=== PATIENT | male | born 1940 | race Caucasian/White ===

== ENCOUNTER 2017-07-20 05:38 | Inpatient (IN) | payer OTHER ==
[~2017-07-20] VITALS: Ht 177.8 cm; Wt 83.1 kg
[2017-07-20 06:18] VITALS: BP 134/80
[2017-07-20] MEDS ORDERED: LACTATED RINGERS 1,000 ML IV SCH (06:34)
[2017-07-20] MEDS ORDERED: [UNRECOGNIZED DRUG - CODE] PO (06:39)
[2017-07-20] MEDS ORDERED: PRAV10TA2 PO (06:39)
[2017-07-20] MEDS ORDERED: GABA600T2 PO (06:39)
[2017-07-20] MEDS ORDERED: ATEN25TA PO (06:39)
[2017-07-20] MEDS ORDERED: CYAN100028 PO (06:39)
[2017-07-20] MEDS ORDERED: OXYC1TAB7 PO (06:39)
[2017-07-20] MEDS ORDERED: ASPI-515 PO (06:39)
[2017-07-20] MEDS ORDERED: OMEP-110 PO (06:39)
[2017-07-20] MEDS ORDERED: EPINEPHRINE 1 MG/ML, 1ML ONE (06:49)
[2017-07-20] MEDS ORDERED: THROMBIN 5,000 UNIT VIAL TP ONE (06:49)
[2017-07-20] MEDS ORDERED: INDIGO CARMINE 0.8%, 5ML ONE (06:49)
[2017-07-20] MEDS ORDERED: BUPIVACAINE/PF 0.5% ONE (06:49)
[2017-07-20] MEDS ORDERED: BACITRACIN 50,000 UNIT ONE (06:50)
[2017-07-20] MEDS ORDERED: MIDAZOLAM 1 MG/ML, 2ML ONE (06:59)
[2017-07-20] MEDS ORDERED: PROPOFOL 100 ML ONE (06:59)
[2017-07-20] MEDS ORDERED: FENTANYL PF 250 MCG/5ML ONE (07:00)
[2017-07-20] MEDS ORDERED: ROCURONIUM 10MG/ML,5ML ONE (07:00)
[2017-07-20] MEDS ORDERED: LIDOCAINE-MPF 1%, 2ML INFIL ONE (07:00)
[2017-07-20] MEDS ORDERED: DEXAMETHASONE 4 MG/ML, 1ML ONE ×4 (07:40→09:55)
[2017-07-20] MEDS ORDERED: CEFAZOLIN 1,000 MG ONE (07:42)
[2017-07-20] MEDS ORDERED: ONDANSETRON 2MG/ML, 2ML ONE (09:02)
[2017-07-20] MEDS ORDERED: MEPERIDINE/PF 25MG/0.5ML IVPush PRN (09:30)
[2017-07-20] MEDS ORDERED: PROMETHAZINE 12.5 MG SUPP PR PRN (09:30)
[2017-07-20] MEDS ORDERED: ACETAMINOPHEN 325 MG TABLET PO PRN (09:30)
[2017-07-20] MEDS ORDERED: LABETALOL 5MG/ML, 20ML IV PRN (09:30)
[2017-07-20] MEDS ORDERED: morphine SULFATE 10 MG/ML, 1ML IV PRN (09:30)
[2017-07-20] MEDS ORDERED: hydrALAzine 20 MG/ML, 1ML IV PRN (09:30)
[2017-07-20] MEDS ORDERED: DIAZEPAM 5 MG/ML, 2ML IVPush PRN (09:30)
[2017-07-20] MEDS ORDERED: HYDROmorphone 1 MG/ML, 1ML IV PRN (09:30)
[2017-07-20] MEDS ORDERED: OXYcodone 5 MG/5 ML ORAL.SOL UDC PO PRN (09:30)
[2017-07-20] MEDS ORDERED: ONDANSETRON 2MG/ML, 2ML IVPush PRN (09:30)
[2017-07-20] MEDS ORDERED: ACETAMINOPHEN 650 MG/20.3 ML UDC ONE (09:47)
[2017-07-20] MEDS ORDERED: OXYcodone 5 MG/5 ML ORAL.SOL UDC ONE (09:47)
[2017-07-20] MEDS ORDERED: FENTANYL PF 100 MCG/2ML ONE (09:48)
[2017-07-20] MEDS: FENTANYL PF 100 MCG/2ML IV PRN ×2 (10:04→10:13)
[2017-07-20] MEDS ORDERED: HYDROcodone/APAP 5/325 TABLET PO PRN (11:30)
[2017-07-20] MEDS ORDERED: MAGNESIUM HYDROXIDE 8%, 30ML UDC PO PRN (11:30)
[2017-07-20] MEDS ORDERED: HYDROmorphone 2MG TABLET PO PRN ×2 (11:30→12:00)
[2017-07-20] MEDS ORDERED: ONDANSETRON 2MG/ML, 2ML IV PRN (11:30)
[2017-07-20] MEDS ORDERED: PROMETHAZINE 25 MG/ML, 1ML IM PRN (11:30)
[2017-07-20] MEDS ORDERED: HYDROmorphone 2 MG/ML, 1ML IM PRN ×2 (11:30→12:00)
[2017-07-20] MEDS ORDERED: DIPHENHYDRAMINE 50 MG CAPSULE PO PRN (11:30)
[2017-07-20] MEDS ORDERED: DIPHENHYDRAMINE 50 MG/ML, 1ML IM PRN (11:30)
[2017-07-20] MEDS ORDERED: BISACODYL 10 MG SUPP PR PRN (11:30)
[2017-07-20] MEDS ORDERED: DIPHENHYDRAMINE 50 MG/ML, 1ML IVPush PRN (11:30)
[2017-07-20] MEDS ORDERED: DIAZEPAM 5 MG TABLET PO PRN (11:30)
[2017-07-20] MEDS ORDERED: CHLORZOXAZONE 500 MG PO PRN (11:30)
[2017-07-20] MEDS: NS + 20MEQ KCL 1,000 ML IV SCH (11:54)
[2017-07-20 13:53] VITALS: BP 96/64
[2017-07-20] MEDS: CEFAZOLIN PMX 1GM/50ML 50 ML IVPB SCH (16:25)
[2017-07-20] MEDS: OMEPRAZOLE 20 MG CAPSULE.DR PO SCH (16:25)
[2017-07-20 19:57] VITALS: BP 153/96
[2017-07-20 20:06] VITALS: BP 107/62
[2017-07-20] MEDS: GABAPENTIN 300 MG CAPSULE PO SCH (20:23)
[2017-07-20] MEDS ORDERED: ATENOLOL 25 MG TABLET PO SCH (21:00)
[2017-07-20] MEDS ORDERED: ZOLPIDEM 5MG TABLET PO PRN (21:00)
[2017-07-20] MEDS ORDERED: PRAVASTATIN 20 MG TABLET PO SCH (21:00)
[2017-07-20 23:51] VITALS: BP 97/60
[2017-07-21] MEDS: CEFAZOLIN PMX 1GM/50ML 50 ML IVPB SCH (00:04)
[2017-07-21] MEDS: NS + 20MEQ KCL 1,000 ML IV SCH ×2 (00:12→12:30)
[2017-07-21 04:17] VITALS: BP 114/60
[2017-07-21] MEDS ORDERED: ATENOLOL 25 MG TABLET PO SCH (06:00)
[2017-07-21] MEDS: GABAPENTIN 300 MG CAPSULE PO SCH (08:01)
[2017-07-21] MEDS: OMEPRAZOLE 20 MG CAPSULE.DR PO SCH (08:01)
[2017-07-21] MEDS: OXYcodone/APAP 5/325MG TABLET PO PRN ×2 (08:07→12:13)
[2017-07-21] MEDS ORDERED: SENNA/DOCUSATE TABLET PO SCH (09:00)
[2017-07-21] MEDS ORDERED: CYANOCOBALAMIN 1,000 MCG TABLET PO SCH (09:00)
[2017-07-21 09:01] VITALS: BP 125/75
[2017-07-21 11:25] VITALS: BP 116/72
== END 2017-07-21 12:45 | disposition home or self-care (01) | DRG 42 ==
LOC: OUT 05:38 → 4NOR 10:47 → OUT 11:28 → DCLOUNGE 07-21 12:30
PROVIDERS: ADMIT Neurological Surgery; ATTEND Neurological Surgery
PROC: 01N80ZZ Release Thoracic Nerve, Open Approach (ICD-10-PCS; 2017-07-20)
PROC: 01N10ZZ Release Cervical Nerve, Open Approach (ICD-10-PCS; principal; 2017-07-20 07:30)
DX: M54.12 Radiculopathy, cervical region (principal); M48.02 Spinal stenosis, cervical region; Z87.891 Personal history of nicotine dependence
CPT/HCPCS: 72040; 82962; 95938; 95941; C1713; J0171; J0690; J1100; J2250; J2270; J2405; J2704; J3010; J3480; J3490; J7120